=== PATIENT | female | born 1975 | race Caucasian/White ===

== ENCOUNTER 2016-11-29 21:00 | Emergency (ER) | payer SELFPAY ==
[~2016-11-29] VITALS: Ht 172.7 cm; Wt 75.0 kg
[~2016-11-29 21:00] MED LIST: OXYC-360 PO; Z.0.NO CURRENT MEDS
[2016-11-29 21:02] VITALS: BP 127/84; PULSE 88; RESP 16; TEMP 98.7; O2SAT 99
[2016-11-29] MEDS ORDERED: VENTAER INH ×2 (22:22→23:55)
[2016-11-29] MEDS: RESP: ALBUTEROL 2.5 MG/IPRATROPIUM 0.5 MG NEB (SCH) INH ×2 (22:41→22:42)
[2016-11-29] MEDS ORDERED: predniSONE 20 MG TAB PO ONE (22:45)
--- NOTE | 2016-11-29 22:56 | PD ---
HPI . Shortness of breath Chief Complaint: Respiratory Symptoms Time Seen by Provider: 22:35 Travel History International Travel<30 days: No Contact w/Intl Traveler<30days: No Traveled to known affect area: No History of Present Illness HPI This is a 41-year-old female who presents with a 1 month history of shortness of breath. She was treated for an asthma exacerbation at [facility] 1 month ago and discharged with albuterol and steroids. She has since run out of albuterol. She has not followed up with any doctors since her last hospitalization. She presents this evening with increased coughing spells and shortness of breath. She denies any URI symptoms, fevers, sore throat, rhinorrhea, or abdominal pain. She currently smokes 1 PPD. She has noted no exacerbating or relieving factors. She reports paroxysmal coughing spells. [facility] Past Medical History Diminished Hearing: No Tetanus Vaccination: Unknown Influenza Vaccination: No ?: Not LMP: 11/11/2016 : 3 Para: 2 Past Surgical History Section: Yes Other Surgery: Yes (BREAST AUGMENTATION) Social History Alcohol Use: No Tobacco Use: Yes (PPD) Substance Use: No Allergies-Medications (Allergen,Severity, Reaction): Coded Allergies: No Known Allergies (Verified , 11/29/16) Reported Meds & Prescriptions Reported Meds & Active Scripts Active Reported Ventolin Hfa 18 GM Inh (Albuterol Sulfate) 90 Mcg/Act Aer 2 Puff INH Q4-6H PRN Review of Systems Except as stated in HPI: all other systems reviewed are Neg General / Constitutional: No: Fever, Chills Respiratory: Positive: Cough, Shortness of Breath, No: Wheezing Gastrointestinal: No: Nausea, Abdominal Pain Physical Exam Narrative GENERAL: The patient was examined at bedside with her significant other in the room. She is in no acute distress and alert and oriented x3. She occasionally coughs in spurts. SKIN: Warm and dry. No cyanosis HEAD: Atraumatic. Normocephalic. EYES: Pupils equal and round. No conjunctival injection. ENT: No nasal bleeding or discharge. Mucous membranes pink and moist. NECK: Trachea midline. No lymphadenopathy. CARDIOVASCULAR: Regular rate and rhythm. No murmurs or extra beats. RESPIRATORY: No accessory muscle use. No wheezing was heard on exam. The lungs were clear to auscultation bilaterally. Sats are 100% on room air. GASTROINTESTINAL: Abdomen soft, non-tender, nondistended. MUSCULOSKELETAL: No obvious deformities. No edema. NEUROLOGICAL: Awake and alert. No obvious cranial nerve deficits. Motor grossly within normal limits. Normal speech. PSYCHIATRIC: Appropriate mood and affect; insight and judgment normal. Data Data Last Documented VS Vital Signs Date Time Temp Pulse Resp B/P Pulse Ox O2 Delivery O2 Flow Rate FiO2 11/29/16 21:02 98.7 88 16 127/84 99 Room Air Orders Albuterol-Ipratropium Neb (Duoneb Neb) (11/29/16 22:45) Prednisone (Deltasone) (11/29/16 22:45) [facility] Medical Decision Making Medical Screen Exam Complete: Yes Emergency Medical Condition: Yes Differential Diagnosis Asthma exacerbation, COPD exacerbation, URI, bronchospasm Narrative Course This is a 41-year-old female who presents with a month history of shortness of breath and coughing. She was recently treated in an outside emergency department for an asthma exacerbation but has since run out of the albuterol. She has not had any follow-up with a primary care doctor or associate loan officer. She denies a history of asthma before the last hospitalization. She is a current smoker. She will be treated with a DuoNeb and oral steroids. Diagnosis Primary Impression: COPD (chronic obstructive pulmonary disease) Qualified Code: J44.9 - Chronic obstructive pulmonary disease, unspecified COPD type Referrals: [facility] Patient Instructions: COPD (Chronic Obstructive Pulmonary Disease) (DC), General Instructions Med/Other Pt SpecificInfo: Prescription(s) given Scripts Prednisone (48) 10 mg tab Dose Pack 10 Mg Dspk10 Mg PO DIRECTED #1 DSPK Ref 0 Prov:Suzie Camacho MD 11/29/16 Albuterol 18 GM Inh (Ventolin Hfa 18 GM Inh)90 Mcg/Act Aer2 Puff INH Q4-6H PRN ( SHORTNESS OF BREATH) #1 INHALER Ref 0 Prov:Suzie Camacho MD 11/29/16 Disposition: 01 DISCHARGE HOME Condition: Stable Suzie Camacho MD Nov 29, 2016 22:56
[2016-11-29] MEDS ORDERED: PRED10PA2 PO (23:55)
== END 2016-11-30 00:06 | disposition home or self-care (01) ==
LOC: NEPE 21:00
DX: J44.9 Chronic obstructive pulmonary disease, unspecified (principal); F17.210 Nicotine dependence, cigarettes, uncomplicated
CPT/HCPCS: 94640; 94664; 99285; J7512

== ENCOUNTER 2017-04-25 15:12 | Emergency (ER) | payer SELFPAY ==
[~2017-04-25] VITALS: Ht 165.1 cm; Wt 65.0 kg
[~2017-04-25 15:12] MED LIST changes: -OXYC-360 PO; +PRED10PA2 PO; +VENTAER INH; -Z.0.NO CURRENT MEDS
[2017-04-25 15:14] VITALS: BP 143/79; PULSE 81; RESP 14; TEMP 98.1; O2SAT 100
[2017-04-25] MEDS ORDERED: PRED-503 PO (16:21)
[2017-04-25] MEDS ORDERED: BACT800T5 PO (16:21)
--- NOTE | 2017-04-25 16:22 | PD ---
HPI Chief Complaint: Skin Problem Time Seen by Provider: 16:10 Travel History International Travel<30 days: No Contact w/Intl Traveler<30days: No Traveled to known affect area: No History of Present Illness HPI 41-year-old female presents to the emergency Department with complaint of tender lumps to her right forearm, left forearm, and left upper arm that she has noticed today. She says her surrounded by redness. She doesn't know if she got bit by bugs. She denies new laundry detergents, lotions, soaps, medications, foods, environmental exposures. Denies fever, vomiting. Denies the areas are itchy. No one else with similar symptoms. Has tried topical hydrocortisone cream for symptom management. Symptoms are mild in severity. No known relieving or aggravating factors. No known allergies. No primary care provider. Denies significant past medical history. Has no other medical complaints. No other modifying factors or associated signs and symptoms. PFSH Past Medical History Diminished Hearing: No ?: Not LMP: CURRENT : 3 Para: 2 Past Surgical History Section: Yes Other Surgery: Yes (BREAST AUGMENTATION) Social History Alcohol Use: No Tobacco Use: Yes (PPD) Substance Use: No Allergies-Medications (Allergen,Severity, Reaction): Coded Allergies: No Known Allergies (Verified Adverse Reaction, Unknown, 04/25/17) Reported Meds & Prescriptions Reported Meds & Active Scripts Active Deltasone (Prednisone) 20 Mg Tab 40 Mg PO DAILY 4 Days Bactrim DS (Sulfamethoxazole-Trimethoprim) 800-160 Mg Tab 1 Tab PO BID 10 Days start 04/26/2017 Prednisone (48) 10 mg tab Dose Pack (Prednisone) 10 Mg Dspk 10 Mg PO DIRECTED Ventolin Hfa 18 GM Inh (Albuterol Sulfate) 90 Mcg/Act Aer 2 Puff INH Q4-6H PRN Review of Systems Except as stated in HPI: all other systems reviewed are Neg Physical Exam Narrative GENERAL: Well-nourished, well-developed female patient, in no acute distress SKIN: Warm and dry. 3 small approximately 1 cm palpable bumps to the right forearm, left forearm, left upper arm and all are surrounded by an area of erythema with warmth to touch; without drainage. I lateral upper extremity is or supple and non-tense. 2+ radial pulses and sensory intact without erythema or edema. HEAD: Atraumatic. Normocephalic. EYES: Pupils equal and round. No scleral icterus. No injection or drainage. ENT: Mucosa pink and moist. Airway patent. NECK: Trachea midline. CARDIOVASCULAR: Regular rate. RESPIRATORY: No accessory muscle use. GASTROINTESTINAL: Flat. MUSCULOSKELETAL: No obvious deformities. No clubbing. No cyanosis. No edema. NEUROLOGICAL: Awake and alert. Oriented 3. No obvious cranial nerve deficits. Motor grossly within normal limits. Normal speech. PSYCHIATRIC: Appropriate mood and affect; insight and judgment normal. Data Data Last Documented VS Vital Signs Date Time Temp Pulse Resp B/P (MAP) Pulse Ox O2 Delivery O2 Flow Rate FiO2 04/25/17 15:14 98.1 81 14 143/79 (100) 100 Room Air Orders Orders Diphenhydramine (Benadryl) (04/25/17 16:30) Prednisone (Deltasone) (04/25/17 16:30) Ed Discharge Order (04/25/17 16:23) MDM Medical Decision Making Medical Screen Exam Complete: Yes Emergency Medical Condition: Yes Medical Record Reviewed: Yes Differential Diagnosis Cellulitis, insect bites, allergic reaction Narrative Course 41-year-old female with localized skin lumps and swelling to her right forearm, left forearm, and left upper arm. Patient is afebrile and nontoxic-appearing. Denies fever, vomiting. Says the areas are tender. I will treat the patient for both cellulitis and possible allergic reaction. Benadryl and Deltasone administered in the ER. Deltasone, Bactrim prescribed home. Instructed patient to follow up with primary care provider. Patient verbalizes understanding and agreement with treatment plan. Patient is medically cleared and stable for discharge. Discussed reasons to return to the emergency department. Patient agrees with treatment plan. The patients vital signs are stable and the patient is stable for outpatient follow-up and treatment. Patient discharged home, stable and in no acute distress. Diagnosis Primary Impression: Localized skin mass, lump, or swelling Referrals: [facility] Primary Care Physician Patient Instructions: Cellulitis (ED), General Allergic Reaction (ED), General Instructions, Insect Bite or Sting (ED) Additional Instructions: Antibiotics as prescribed Take oral steroids as prescribed [id number] topicals to reduce itch Benadryl as directed and as needed to reduce itch Follow-up with your primary care provider Return to the emergency department immediately with worsening of symptoms Med/Other Pt SpecificInfo: Prescription(s) given Scripts Prednisone (Deltasone) 20 Mg Tab 40 MG PO DAILY for 4 Days, #8 TAB 0 Refills Prov: Cristiane Maria 04/25/17 Sulfamethoxazole-Trimethoprim (Bactrim DS) 800-160 Mg Tab 1 TAB PO BID for Infection for 10 Days, #20 TAB 0 Refills start 04/26/2017 Prov: Cristiane Maria 04/25/17 Disposition: 01 DISCHARGE HOME Condition: Stable Cristiane Maria Apr 25, 2017 16:22
[2017-04-25] MEDS ORDERED: diphenhydrAMINE HCL 50 MG CAP PO ONE (16:30)
[2017-04-25] MEDS ORDERED: predniSONE 20 MG TAB PO ONE (16:30)
== END 2017-04-25 16:33 | disposition home or self-care (01) ==
LOC: NEPK 15:12
DX: R22.33 Localized swelling, mass and lump, upper limb, bilateral (principal); F17.200 Nicotine dependence, unspecified, uncomplicated; Z79.51 Long term (current) use of inhaled steroids; Z79.899 Other long term (current) drug therapy
CPT/HCPCS: 99284; J7512; Q0163